=== PATIENT | male | born 1990 | race Caucasian/White ===

== ENCOUNTER 2021-11-01 19:52 | Emergency (ER) | payer OTHER ==
[~2021-11-01] VITALS: Ht 180.3 cm; Wt 88.0 kg
[~2021-11-01 19:52] MED LIST: IBUPROFEN600 MG PO; OXYCODON-ACETA1 EAC2 PO; TYLENOL325 MG PO
[2021-11-01] MEDS ORDERED: HYDROCODON-ACE1 EA10 PO (22:57)
== END 2021-11-01 23:58 | disposition home or self-care (01) ==
LOC: ED 19:52
DX: S46.911A Strain of unspecified muscle, fascia and tendon at shoulder and upper arm level, right arm, initial encounter (principal); S20.311A Abrasion of right front wall of thorax, initial encounter; V29.9XXA Motorcycle rider (driver) (passenger) injured in unspecified traffic accident, initial encounter; Z79.899 Other long term (current) drug therapy
CPT/HCPCS: 36415; 70450; 71260; 72125; 74177; 80053; 81001; 85025; 86850; 86900; 86901; 87502; 96375; 99284-25; A9270; G0480; J1170; J2270; Q9967; U0003